=== PATIENT | female | born 1945 | race Caucasian/White ===

== ENCOUNTER → 2023-01-17 | Outpatient (CLI) | payer MEDICARE ==
--- NOTE | 2023-01-17 12:21 | FL ---
EXAMINATION TYPE: FL barium swallow DATE OF EXAM: 01/17/2023 11:52 AM COMPARISON: None CLINICAL INDICATION:Female, 77 years old with history of R13.10 DYSPHAGIA; PHH, 24 pound weight loss, IBS TECHNIQUE: The procedure was explained and patient history elicited. All patient questions were ans wered prior to start of procedure. Multiple spot fluoroscopic images of the esophagus were obtained a fter the oral ingestion of effervescent crystals and liquid barium as the contrast agent. Fluoroscopic time: 19 seconds Fluoroscopic images: 450 Total DAP: 1594.27 [id number] FINDINGS: The esophagus demonstrates normal primary and secondary peristalsis. No tertiary contractions identif ied. The esophageal mucosa is smooth without evidence of focal stricture, ulceration, or abnormal ou tpouching. No gastroesophageal reflux disease was identified. No hiatal hernia identified. IMPRESSION: Normal esophagram.
== END | disposition home or self-care (01) ==
LOC: RADUSWWP 10:53
PROVIDERS: ATTEND Internal Medicine Gastroenterology
DX: R13.10 Dysphagia, unspecified (principal); R63.4 Abnormal weight loss
CPT/HCPCS: 74220